=== PATIENT | male | born 1975 | race Caucasian/White ===

== ENCOUNTER → 2017-04-01 | Day surgery (SDC) | payer OTHER ==
[~2017-04-01] MED LIST: BENTYL10 MG/1 ML PO; CAYENNE PEPPER PO; DEXEDRINE10 MG PO; EVENING PRIMRO500 MG PO; FENTANYL CITRATE/PF 100MCG/2 ML INJ ONE; FISH OIL500 MG PO; LIDOCAINE HCL 2% LOCAL INJ 5 ML SDV VIAL INJ ONE; MIDAZOLAM HCL 2 MG/2 ML VIAL ONE; PANTOPRAZOLE SO40 MG PO; PRILOSEC20 MG PO; PROBIOTIC & AC1 EACH PEG; PROPOFOL IV EMULSION 10 MG/ML 50 ML VIAL ONE; Z.0.AMBIEN10 MG PO; Z.0.LAMICTAL100 MG PO; Z.0.NORCO 10-325 T1 PO; Z.0.XANAX2 MG PO; Z.1.TIZANIDINE HCL4 PO; [UNRECOGNIZED DRUG - REMARK]
--- NOTE | 2017-04-01 15:25 | Operative Report ---
DATE OF PROCEDURE: April 01, 2017 REFERRING PHYSICIAN: Dr. Fara Louis. PROCEDURE PERFORMED: Flexible sigmoidoscopy. INDICATIONS FOR PROCEDURE: Colorectal cancer screening. History of colon polyps. MEDICATION: Patient was done under MAC. Please see anesthesiologist's note. PROCEDURE: With patient in the left lateral decubitus position, the flexible fiberoptic Olympus colonoscope was inserted into the rectum with ease and advanced to approximately 20 cm from the anal verge. Prep was very poor with large amount of retained fecal material in the colon and rectum. The scope was subsequently withdrawn. Patient tolerated the procedure well. IMPRESSION: Flexible sigmoidoscopy to approximately 20 cm from the anal verge. Very poor prep. Needs repeat evaluation after a better prep. Job#: [id number] cc:DALE LOUIS MD
== END | disposition home or self-care (01) ==
LOC: OR 09:34
PROVIDERS: ATTEND Internal Medicine Gastroenterology
DX: Z12.11 Encounter for screening for malignant neoplasm of colon (principal); K59.00 Constipation, unspecified; G89.29 Other chronic pain; Z87.442 Personal history of urinary calculi; M08.20 Juvenile rheumatoid arthritis with systemic onset, unspecified site; F90.9 Attention-deficit hyperactivity disorder, unspecified type; G47.30 Sleep apnea, unspecified; F84.0 Autistic disorder; I10 Essential (primary) hypertension; F41.9 Anxiety disorder, unspecified; Z68.33 Body mass index [BMI] 33.0-33.9, adult
CPT/HCPCS: 45330; J2001; J2250; 45378

== ENCOUNTER → 2017-05-06 | Day surgery (SDC) | payer OTHER ==
[~2017-05-06] MED LIST changes: +HYOSCYAMINE SULFATE 0.5 MG/ML AMP ONE; +KETAMINE HCL INJ 50 MG/ML 10 ML VIAL ONE
--- NOTE | 2017-05-06 09:37 | Operative Report ---
DATE OF PROCEDURE: May 06, 2017 REFERRING PHYSICIAN: Michael Louis MD PROCEDURE PERFORMED: Colonoscopy and polypectomy. INDICATIONS FOR COLONOSCOPY: Colorectal cancer screening. Personal history of colon polyps. MEDICATION: Patient was done under MAC. Please see anesthesiologist's note. PROCEDURE: With the patient in the left lateral decubitus position, the flexible fiberoptic Olympus colonoscope was inserted into the rectum with ease and advanced all the way to the cecum. Moderate amount of retained fecal material was noted in the cecum and proximal ascending colon. One polyp was hot biopsied from the cecum. Some diverticular disease was noted to be scattered in the left colon and some minimal diverticulosis in the transverse colon. A minute polyp was noted in the rectum which was hot biopsied. The scope was then retroflexed into the distal rectum, and small internal hemorrhoids were noted, none of which was actively bleeding. The scope was then straightened out. The rectosigmoid area as well as the distal rectal area were decompressed. The scope was subsequently withdrawn. Patient tolerated the procedure well. IMPRESSION 1. Suboptimal prep, proximal ascending colon. 2. Cecal polyp, hot biopsied. 3. Diverticulosis. 4. Rectal polyp, hot biopsied. 5. Internal hemorrhoids, none actively bleeding. PLAN: Follow up histology. Initiate high-fiber, low-fat diet. Initiate high-fiber supplement. Patient will need a followup colonoscopy in 3 years. Job#: [id number] cc:MICHAEL LOUIS MD
== END | disposition home or self-care (01) ==
LOC: OR 06:44
PROVIDERS: ATTEND Internal Medicine Gastroenterology
DX: Z12.11 Encounter for screening for malignant neoplasm of colon (principal); K63.5 Polyp of colon; K62.1 Rectal polyp; K59.00 Constipation, unspecified; K57.30 Diverticulosis of large intestine without perforation or abscess without bleeding; K64.8 Other hemorrhoids; G89.29 Other chronic pain; N20.0 Calculus of kidney; M08.20 Juvenile rheumatoid arthritis with systemic onset, unspecified site; F32.9 Major depressive disorder, single episode, unspecified; F41.9 Anxiety disorder, unspecified
CPT/HCPCS: 45384; J1980; J2001; J2250; 45378